=== PATIENT | female | born 1980 | race Caucasian/White ===

== ENCOUNTER 2018-05-03 00:04 | Emergency (ER) | payer OTHER ==
[2018-05-03] MEDS ORDERED: ONDANSETRON 4 MG/2 ML VIAL ONE (00:31)
[2018-05-03] MEDS ORDERED: KETOROLAC 15 MG/1 ML SDV ONE (00:31)
[2018-05-03] MEDS ORDERED: KETOROLAC 15 MG/1 ML SDV IVP ONE (00:34)
[2018-05-03] MEDS ORDERED: ONDANSETRON 4 MG/2 ML VIAL IVP ONE (00:35)
--- NOTE | 2018-05-03 00:50 | EDPHY ---
H & P Stated Complaint: left flank pain Time Seen by Provider: 05/03/18 00:06 HPI/ROS: HPI The patient presents with left-sided flank pain which began about 1 hr prior to arrival suddenly. It is described as severe and dull in nature without any radiation. It is associated with nausea without any vomiting. 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 She has noticed mild hematuria. She has not had any fevers or chills. She says she does have a history of ureterolithiasis and has seen Dr. Dax Carmona for care. She has passed these spontaneously she reports.. REVIEW OF SYSTEMS 10 systems were reviewed and negative with the exception of the elements mentioned in the history of present illness. PMHx: History of ureterolithiasis in the past, last episode 1 year ago per her report Soc Hx: Works at [employer], lives in [place] PHYSICAL General Appearance: Alert, uncomfortable appearing Eyes: Pupils equal and round no pallor or injection ENT, Mouth: Mucous membranes moist Respiratory: There are no retractions, lungs are clear to auscultation Cardiovascular: Regular rate and rhythm Gastrointestinal: Abdomen is soft and non-tender, no masses, bowel sounds normal Back: There is left flank tenderness Neurological: A&O, moves all extremities Skin: Warm and dry, no rashes Musculoskeletal: Neck is supple non tender Extremities: symmetrical, full range of motion Psychiatric: Patient is oriented X 3, there is no agitation Source: Patient, Old records Exam Limitations: No limitations - Personal History LMP (Females 10-55): 8-14 Days Ago Current Tetanus Diphtheria and Acellular Pertussis (TDAP): Yes - Medical/Surgical History Hx Asthma: No Hx Chronic Respiratory Disease: No Hx Diabetes: No Hx Cardiac Disease: No Hx Renal Disease: No Hx Cirrhosis: No Hx Alcoholism: No Hx HIV/AIDS: No Hx Splenectomy or Spleen Trauma: No - Social History Smoking Status: Current every day smoker Constitutional: Initial Vital Signs Temperature (C) 36.6 C 05/03/18 00:07 Heart Rate 107 H 05/03/18 00:07 Respiratory Rate 20 05/03/18 00:07 Blood Pressure 149/82 H 05/03/18 00:07 O2 Sat (%) 98 05/03/18 00:07 O2 Delivery Mode Room Air Allergies/Adverse Reactions: No Known Allergies Allergy (Unverified 05/03/18 00:07) Home Medications: Medication Instructions Recorded NK [No Known Home Meds] 05/03/18 Medical Decision Making Procedures: Bedside limited abdominal Ultrasound- performed and interpreted by me. Indication: Left flank pain Findings: No left-sided hydronephrosis, no right-sided hydronephrosis, no free fluid in Morison's pouch Impression: No sonographic evidence of hydronephrosis Procedure: Ultrasound guidance for IV placement. Indication: The nurse requested that I place an intravenous catheter because of technical difficulties with this procedure on this patient. Procedure in details: Using the linear probe covered in a sterile sheath, a short axis of the right antecubital vein was obtained. This vein was completely compressible and was identified as separate from the adjacent noncompressible arterial structure. Under real-time guidance, the intravenous needle was observed to tent the vein and then to puncture it. Insertion of intravenous catheter: I prepped the patient's skin with chlorhexidine. I placed an 20 gauge intravenous catheter in the visualized vein. Differential Diagnosis: 37-year-old female with reported history of ureterolithiasis presents with left- sided flank pain for 1 hr associated with nausea. She has also had hematuria. Differential diagnosis includes renal colic, pyelonephritis, less likely diverticulitis. Because the patient told me that she had a CT scan I did put her into [facility]. I reviewed her old records from outside hospitals and she has had multiple visits to a variety of emergency department over the last 1 year for similar flank pain. She has had CT scans that have showed small stones within the kidneys bilaterally without any hydronephrosis. There is been concern from providers about pain medication seeking behavior. [facility] and I see she has multiple prescriptions for opiates from 16 different providers, going to a variety of pharmacies, last prescription was from April 04 for hydrocodone. This is concerning to me. Her UA did show hematuria. Chemistries were normal. Bedside ultrasound showed no hydronephrosis bilaterally. She received Toradol and started on a lidocaine drip. I confronted her about her previous visits to other ERs for similar symptoms and her opiate prescriptions. She asked to be discharged from the emergency department if we were not going to give her any opiate pain medications. She said she would rather recuperate at home. As I am not concerned about any serious diagnoses at this point, I feel this is reasonable. I did offer her information for treatment for opiate abuse, however she declines. - Data Points Laboratory Results: Laboratory Results 05/03/18 02:10 05/03/18 05/03/18 02:10 00:15 Sodium 142 mEq/L mEq/L (135-145) Potassium 3.7 mEq/L mEq/L (3.3-5.0) Chloride 106 mEq/L mEq/L (97-110) Carbon Dioxide 22 mEq/l mEq/l (22-31) Anion Gap 14 mEq/L mEq/L (6-14) BUN 17 mg/dL mg/dL (7-23) Creatinine 0.8 mg/dL mg/dL (0.6-1.0) Estimated GFR > 60 Glucose 101 mg/dL H mg/dL (70-100) Calcium 9.9 mg/dL mg/dL (8.5-10.4) Urine Color YELLOW Urine Appearance HAZY Urine pH 5.0 (5.0-7.5) Ur Specific [place] 1.021 (1.002-1.030) Urine Protein NEGATIVE (NEGATIVE) Urine Ketones NEGATIVE (NEGATIVE) Urine Blood 3+ H (NEGATIVE) Urine Nitrate NEGATIVE (NEGATIVE) Urine Bilirubin NEGATIVE (NEGATIVE) Urine Urobilinogen NEGATIVE EU EU (0.2-1.0) Ur Leukocyte Esterase TRACE H (NEGATIVE) Urine RBC 5-10 /hpf H /hpf (0-3) Urine WBC 1-3 /hpf /hpf (0-3) Ur Epithelial Cells 1+ /lpf /lpf (NONE-1+) Urine Bacteria 2+ /hpf H /hpf (NONE SEEN) Urine Mucus TRACE /lpf /lpf (NONE-1+) Urine Glucose NEGATIVE (NEGATIVE) Medications Given: Discontinued Medications Sodium Chloride (Ns) 1,000 mls @ 0 mls/hr IV EDNOW ONE; Wide Open PRN Reason: Protocol Stop: 05/03/18 00:36 Last Admin: 05/03/18 02:12 Dose: 1,000 mls Lidocaine HCl 150 mg/ Sodium (Chloride) 115 mls @ 600 mls/hr IV EDNOW ONE Stop: 05/03/18 00:45 Last Admin: 05/03/18 02:13 Dose: 115 mls Ketorolac Tromethamine (Toradol) 15 mg IVP EDNOW ONE Stop: 05/03/18 00:35 Last Admin: 05/03/18 01:03 Dose: Not Given Ketorolac Tromethamine (Toradol) 30 mg IM EDNOW ONE Stop: 05/03/18 01:05 Last Admin: 05/03/18 01:05 Dose: 30 mg Ondansetron HCl (Zofran) 4 mg IVP EDNOW ONE Stop: 05/03/18 00:36 Last Admin: 05/03/18 01:03 Dose: Not Given Ondansetron HCl (Zofran Odt) 4 mg PO EDNOW ONE Stop: 05/03/18 01:05 Last Admin: 05/03/18 01:06 Dose: 4 mg Departure - Departure Disposition: Home, Routine, Self-Care Clinical Impression: Left flank pain, Nausea Hematuria Qualifiers: Hematuria type: unspecified type Qualified Code(s): R31.9 - Hematuria, unspecified Condition: Good Instructions: Opioid Use Disorder (ED) Additional Instructions: As her doctor, I am concerned about your pain medication use. You have a lot of prescriptions for oxycodone, [place] over the last 1 year. This is usually a sign that you have a problem and I do recommend that you seek help for this. You can follow up at the [facility] if you would like more information. We cannot prescribe these medications to you because they can actually be dangerous to her health. Referrals: [facility],. [Clinic] - As per Instructions
[2018-05-03] MEDS ORDERED: KETOROLAC 30 MG/1 ML SDV ONE (00:56)
[2018-05-03] MEDS ORDERED: ONDANSETRON DISINTEGRATING 4 MG TAB ONE (01:00)
[2018-05-03] MEDS ORDERED: ONDANSETRON DISINTEGRATING 4 MG TAB PO ONE (01:04)
[2018-05-03] MEDS ORDERED: KETOROLAC 30 MG/1 ML SDV IM ONE (01:04)
[2018-05-03] MEDS: LIDOCAINE 1% 150 MG in NS 100 ML IV ONE ×2 (01:09→02:13)
[2018-05-03] MEDS: NS 1,000 ML IV ONE ×2 (01:09→02:12)
[2018-05-03 02:17] VITALS: BP 140/81
== END 2018-05-03 02:48 | disposition home or self-care (01) ==
DX: R10.32 Left lower quadrant pain (principal); R31.9 Hematuria, unspecified; F11.20 Opioid dependence, uncomplicated; F17.200 Nicotine dependence, unspecified, uncomplicated; Z87.442 Personal history of urinary calculi; E86.9 Volume depletion, unspecified
CPT/HCPCS: 96365; J1885; J2405